=== PATIENT | male | born 1980 | race Caucasian/White ===

== ENCOUNTER → 2016-11-16 | Outpatient (CLI) | payer OTHER ==
--- NOTE | 2016-11-20 08:45 | DEXA ---
AP SPINE L1 - L4 1.022 -1.7 -2.1 LT FEMUR TOTAL 0.925 -1.2 -1.3 RT FEMUR TOTAL 0.892 -1.5 -1.5 TOTAL BODY TOTAL OTHER DUAL FEMUR FRAX* ASSESSMENT Risk factors: Not within fracture age. 10 year probability of fracture Major osteoporotic fracture % Hip fracture % COMMENTS: There is low bone density of the spine and hips. FOLLOW-UP: Recommendation for the next bone density exam: 2 years. MTDD
== END ==
LOC: M WHC 12:41
PROVIDERS: ATTEND Physician Assistant Medical
DX: K90.0 Celiac disease (principal)

== ENCOUNTER 2017-10-21 06:59 | Day surgery (SDC) | payer OTHER ==
[2017-10-21] MEDS: NS 1,000 ML IV (07:20)
[2017-10-21] MEDS ORDERED: PROPOFOL 200 MG/20 ML VIAL As Ordered ×2 (08:06→08:25)
[2017-10-21] MEDS ORDERED: LIDOCAINE 2% INJ 100 MG/5 ML SDV (FOR ANES.) As Ordered (08:06)
== END 2017-10-21 09:16 | disposition home or self-care (01) ==
LOC: M OPP 06:59
DX: R10.32 Left lower quadrant pain (principal); K62.5 Hemorrhage of anus and rectum; R63.4 Abnormal weight loss; K64.0 First degree hemorrhoids; K90.0 Celiac disease; K22.8 Other specified diseases of esophagus; K44.9 Diaphragmatic hernia without obstruction or gangrene; Z88.0 Allergy status to penicillin; Z79.899 Other long term (current) drug therapy
CPT/HCPCS: 45378

== ENCOUNTER 2018-04-23 06:23 | Emergency (ER) | payer OTHER ==
[2018-04-23] MEDS: NS 1,000 ML IV (07:00)
[2018-04-23] MEDS: ONDANSETRON 4MG/2ML VIAL (J2405) IV (07:18)
[2018-04-23] MEDS: KETOROLAC 30 MG/ML VIAL (J1885) IV (07:21)
[2018-04-23] MEDS: ACETAMINOPHEN 325 MG TAB PO (08:49)
[2018-04-23] MEDS: METOCLOPRAMIDE INJ 10MG/2ML VIAL (J2765) IV (08:49)
== END 2018-04-23 10:06 | disposition home or self-care (01) ==
LOC: M ED 06:23
DX: G43.909 Migraine, unspecified, not intractable, without status migrainosus (principal); Z87.891 Personal history of nicotine dependence; Z88.0 Allergy status to penicillin; Z79.899 Other long term (current) drug therapy
CPT/HCPCS: J2405